=== PATIENT | male | born 1930 | race Caucasian/White ===

== ENCOUNTER 2019-05-24 15:29 | Inpatient (IN) | payer OTHER ==
[~2019-05-24] VITALS: Ht 175.3 cm; Wt 82.4 kg
--- NOTE | ~2019-05-24 | HC ---
[facility] [place] [address] CONSULTATION Name: GILLIAN SPANN Room #: 358-P ADM IN .R.#: [id number] Admission: 05/24/19 Attend Phys: Gerson Shaver MD Discharge: Date of : [birth year] Report #: [id number] THIS REPORT FOR: //name// CC: Gerson Crowley [facility] DATE OF SERVICE: 05/25/2019 HISTORY OF PRESENT ILLNESS: This is an 88-year-old male patient who is not able to provide any reliable history. The son is here and I discussed the patient with the son. I talked to the hospitalist. The patient was admitted with an episode of stroke-like symptoms. However, when the further history is taken, it looks like the patient's symptom is going on for 1-2 years. He had a stroke, which was about 5-7 years ago. It was in [facility]. I do not have any of those records. It affected the right side, but he did make some recovery. About a year ago, he started having some weakness on the right side and speech difficulty. It was gradually progressive, but will intermittently become worse. Yesterday, it became worst and he was brought to the hospital. They were concerned with stroke and they did an MRI of the brain and that does not indicate any acute changes. REVIEW OF SYSTEMS: Positive for hypertension. It is not clear what his blood pressure stays in the facility where he lives. His blood pressure was high when he came in. He was taking aspirin for his prior stroke. I do not know if he was taking statin or not. A 14-point review of system was carried out. This patient is extremely hard of hearing. That makes the evaluation pretty difficult. 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 He moves both sides. It is not possible to do a good sensory system evaluation in this patient because of the patient's difficulty with hearing. No change in cardiac or respiratory status was noticed. PHYSICAL EXAMINATION: VITAL SIGNS: His blood pressure is 146/63, it was higher earlier, respiration is 20, pulse is 84, temperature is 97.9. LABORATORY DATA AND IMAGING STUDIES: His white count is normal. MRI was reviewed and so was carotid Doppler. IMPRESSION: This patient has a prior stroke. He is gradually becoming worst over a period of 1-2 years, looks like he became hypertensive and became even worse than before. I had a long talk with the patient's son and subsequently talked to the hospitalist and in detail. I think his aggravation is because of systemic problems, including hypertension. We cannot fully rule out a stroke. There is a limited thing we can do. We can do PT, OT, speech therapy. We can replace [facility] [address] [place] [address] CONSULTATION Name: ZANAGILLIAN Room #: 358-P [facility] IN M.R.#: [id number] Admission: 05/24/19 Attend Phys: Gerson Shaver MD Discharge: Date of : [birth year] Report #: [id number] aspirin with Plavix. We will see how he does with PT, OT. A total of about 50 minutes was spent on this patient and majority of that was counseling and coordinating. I reviewed extensive records in the computer as well as his imaging studies. By: [id number] [id number] Adan Napier MD /nt
[2019-05-24 15:29] VITALS: BP 184/70
--- NOTE | 2019-05-24 15:29 | NUR ---
CODE STROKE INITIATED
[2019-05-24 16:12] LABS: ABSOLUTE NEUTROPHILS 6.8 thou/uL (1.4-8.2); BASOPHILS 0.2 % (0.0-2.0); EOSINOPHILS 0.2 % (0.0-3.0); HEMATOCRIT 38.2 % (42.0-52.0); HEMOGLOBIN 13.3 gm/dL (14.0-18.0); LYMPHOCYTES 10.6 % (24.0-44.0); MCH 31.8 pg (26.0-34.0); MCHC 34.9 g/dL (28.0-37.0); MONOCYTES 8.9 % (1.0-8.0); PLATELET COUNT 181 thou/uL (150-400); POLYS 80.1 % (36.0-66.0); RDW 12.7 % (10.5-14.5); WBC 8.5 thou/uL (4.0-11.0)
[2019-05-24 16:18] LABS: CALCIUM 9.3 mg/dL (8.5-10.1); CREATININE 1.1 mg/dL (0.7-1.3); POTASSIUM 3.9 mmol/L (3.5-5.1)
[2019-05-24 16:25] LABS: ALBUMIN 3.2 g/dL (3.4-5.0); DIRECT BILIRUBIN 0.2 mg/dL (<0.1-0.3); TOTAL BILIRUBIN 0.8 mg/dL (<0.1-1.0); TOTAL PROTEIN 6.2 g/dL (6.4-8.2)
[2019-05-24] MEDS ORDERED: ASPIR 8181 MG PO (16:55)
[2019-05-24 16:56] LABS: APTT 26.4 Seconds (24.5-32.8); PROTIME 10.4 Seconds (9.3-11.4)
[2019-05-24] MEDS ORDERED: CALCIUM 500 +1 EAC5 PO (16:56)
[2019-05-24] MEDS ORDERED: PROSCAR 5MG TABL5 MG PO (16:56)
[2019-05-24] MEDS ORDERED: ICAPS MV TABLE1 EAC1 PO (16:56)
[2019-05-24] MEDS ORDERED: LISINOPRIL10 MG PO (16:57)
[2019-05-24] MEDS ORDERED: LOPRESSOR25 PO (16:58)
[2019-05-24] MEDS ORDERED: ZOCOR20 MG PO (17:11)
[2019-05-24] MEDS ORDERED: TERAZOSIN HCL10 MG PO (17:12)
[2019-05-24 18:16] VITALS: BP 180/73
[2019-05-24 18:41] LABS: TSH 0.312 uIU/mL (0.358-3.740)
[2019-05-24 18:52] LABS: URINE BILIRUBIN NEGATIVE (Negative); URINE BLOOD NEGATIVE (Negative); URINE CLARITY CLEAR; URINE COLOR YELLOW; URINE GLUCOSE-RANDOM* NEGATIVE (Negative); URINE KETONES NEGATIVE (Negative); URINE LEUKOCYTES-REFLEX NEGATIVE (Negative); URINE NITRITE-REFLEX NEGATIVE (Negative); URINE PROTEIN (DIPSTICK) NEGATIVE (Negative); URINE UROBILINOGEN 0.2 E.U./dl (0.2-1.0)
[2019-05-24 20:30] VITALS: BP 187/87
[2019-05-24 21:19] VITALS: BP 191/82
[2019-05-24 22:12] VITALS: BP 180/78
[2019-05-24 23:00] VITALS: BP 155/69
[2019-05-25 00:09] VITALS: BP 153/80
[2019-05-25 04:45] VITALS: BP 159/84
[2019-05-25 05:43] LABS: HEMOGLOBIN 12.6 gm/dL (14.0-18.0); MCH 30.8 pg (26.0-34.0); MCHC 33.9 g/dL (28.0-37.0); MCV 90.9 fL (80.0-100.0); RBC 4.07 mil/uL (4.50-6.00); RDW 13.1 % (10.5-14.5); WBC 7.5 thou/uL (4.0-11.0)
[2019-05-25 06:06] LABS: ANION GAP 10 mmol/L (7-16); BUN 17 mg/dL (7-18); CALCIUM 8.4 mg/dL (8.5-10.1); CHLORIDE 102 mmol/L (98-107); CHOLESTEROL 119 mg/dL (<200); CO2 23 mmol/L (21-32); CREATININE 0.9 mg/dL (0.7-1.3); GLUCOSE 112 mg/dL (74-106); HDL CHOLESTEROL 48 mg/dL (>40); LDL CHOLESTEROL 63 mg/dL (<100); MAGNESIUM 1.7 mg/dL (1.8-2.4); POTASSIUM 3.6 mmol/L (3.5-5.1); SODIUM 135 mmol/L (136-145); TC:HDL 2.5 Ratio (Not establshd); TRIGLYCERIDE 43 mg/dL (<150); VLDL 9 mg/dL (<40)
[2019-05-25 06:26] LABS: SERUM ASSESSMENT Clear
--- NOTE | 2019-05-25 07:02 | NUR ---
PATIENT ARRIVED FROM ER LAST NIGHT AROUND 2014. PT ORIENTED TO PERSON, SLURRED SPEECH/ EXPRE. APHASIA. PT FOLLOWS SIMPLE COMMANDS AND NODS YES/NO QUESTIONS. PT HAS HX CVA WITH SOME RIGHT SIDE WEAKNESS PER PT'S SON. SPOKE WITH DR JOHNSON R/T MRI RESULTS LAST NIGHT. PT HAD C/O HEADACHE, NOTIFIED TAX ECONOMIST. SEE EMAR.
[2019-05-25 08:04] VITALS: BP 188/79
--- NOTE | 2019-05-25 08:11 | EKG ---
[address] [place] [address] ELECTROCARDIOGRAM REPORT Name: GILLIAN SPANN Room #: 358-P ADM IN M.R.#: [id number] Admission: 05/24/19 Attend Phys: Gerson Shaver MD Discharge: Date of : [birth year] Report #: [id number] THIS REPORT FOR: //name// [facility] ED Test Date: 2019-05-24 Test Time: 15:45:56 Pat Name: GILLIAN SPANN Department: Room: 358 Gender: M Machine Load Clerk: NICHOLAS : 1930 Requested By: Melissa Gallardo Order Number: [id number] MD: Jorge Bowen Measurements Intervals [place] Rate: 82 P: -9 CT: 193 QRS: 20 QRSD: 96 T: 55 QT: 363 QTc: 424 Interpretive Statements Sinus rhythm Borderline T wave abnormalities No previous ECG available for comparison Electronically Signed On 05-25-2019 8:11:26 CDT by Jorge Bowen [email or web address] <ELECTRONICALLY SIGNED> By: Jorge Bowen MD, [facility] 05/25/19 0811 1545 1545 Jorge Bowen MD, FACC /EPI
[2019-05-25 10:30] VITALS: BP 147/71
[2019-05-25 12:51] VITALS: BP 146/63
--- NOTE | 2019-05-25 13:49 | 2DMMODE ---
[facility] [place] [address] 2 D/M-MODE ECHOCARDIOGRAM Name: GILLIAN SPANN Room #: 358-P [facility] IN ..#: [id number] Admission: 05/24/19 Attend Phys: Gerson Shaver, Discharge: Date of : [birth year] Date of Service: 05/25/19 1349 Report #: [id number] THIS REPORT FOR: //name// APPROVED REPORT Study performed: 05/25/2019 12:32:27 EXAM: Comprehensive 2D, Doppler, and color-flow Echocardiogram Patient Location: Bedside Room #: [facility] Status: routine BSA: 1.98 HR: 77 bpm BP: 188/79 mmHg Rhythm: NSR Other Information Study Quality: Adequate Indications CVA/TIA Hypertension/HDD Echo Enhancing Agent Indication: Rule out Shunt Agent(s) / Amount(s) Used: Agitated Saline 7 cc 2D Dimensions IVSd: 12.16 (7-11mm) LVOT Diam: 20.26 (18-24mm) LVDd: 41.69 mm PWd: 11.99 (7-11mm) Ascending Ao: 36.67 (22-36mm) LVDs: 28.32 (25-40mm) Aortic Root: 32.61 mm IVC: 23.00 mm Aortic Valve AoV Peak Rony.: 1.50 m/s AO Peak Gr.: 9.01 mmHg LVOT Max P.52 mmHg LVOT Max V: 1.06 m/s [place] Vmax: 2.28 cm2 Mitral Valve E/A Ratio: 0.9 MV Decel. Time: 237.25 ms MV E Max Rony.: 0.77 m/s MV A Rony.: 0.82 m/s [facility] [address] [place] [address] 2 D/M-MODE ECHOCARDIOGRAM Name: ZANAGILLIAN Room #: 358-P [facility] IN ..#: [id number] Admission: 05/24/19 Attend Phys: Gerson Shaver, Discharge: Date of : [birth year] Date of Service: 05/25/19 1349 Report #: [id number] PHT: 68.80 ms IVRT: 133.79 ms Pulmonary Valve PV Peak Rony.: 1.04 m/s PV Peak Gr.: 4.33 mmHg Pulmonary Vein P Vein S: 0.75 m/s P Vein A: 0.28 m/s P Vein D: 0.45 m/s P Vein A Dur.: 115.3 msec P Vein S/D Ratio: 1.67 Tricuspid Valve TR Peak Rony.: 2.39 m/s TR Peak Gr.: 22.77 mmHg PA Pressure: 33.00 mmHg Left Ventricle The left ventricle is normal size. There is normal LV segmental wall motion. Mild concentric left ventricular hypertrophy. The left ventricular systolic function is normal. The left ventricular ejection fraction is within the normal range. LVEF is 60-65%. Grade I - abnormal relaxation pattern. Right Ventricle The right ventricle is normal size. The right ventricular systolic function is normal. Atria Left atrium is at the upper limits of normal. Interatrial septum is intact without evidence of ASD or PFO. Right atrium is at the upper limits of normal. Aortic Valve The aortic valve is normal in structure. Aortic valve is calcified. Mild aortic regurgitation. There is no aortic valvular stenosis. Mitral Valve The mitral valve is normal in structure. Mild mitral regurgitation. No evidence of mitral valve stenosis. Tricuspid Valve The tricuspid valve is normal in structure. There is trace to mild tricuspid regurgitation. Estimated PAP 33 mmHg. There is mild pulmonary hypertension. [address] [address] 2 D/M-MODE ECHOCARDIOGRAM Name: ZANAGILLIAN Room #: 358-P [facility] IN ..#: [id number] Admission: 05/24/19 Attend Phys: Gerson Shaver, Discharge: Date of : [birth year] Date of Service: 05/25/19 1349 Report #: [id number] Pulmonic Valve The pulmonary valve is normal in structure. There is no pulmonic valvular regurgitation. Great Vessels The aortic root is normal in size. IVC is dilated and collapses <50% with inspiration. <Conclusion> The left ventricle is normal size. Mild concentric left ventricular hypertrophy. The left ventricular systolic function is normal. Grade I - abnormal relaxation pattern. The right ventricle is normal size. Left atrium is at the upper limits of normal. Aortic valve is calcified. Mild aortic regurgitation. Mild mitral regurgitation. There is trace to mild tricuspid regurgitation. Estimated PAP 33 mmHg. <ELECTRONICALLY SIGNED> By: Omid Kemp MD 05/25/19 1349 1349 1349 Omid Kemp MD /INF
--- NOTE | 2019-05-25 14:00 | NUR ---
ASSESSMENT: CM REVIEWED CHART AND MET WITH PATIENT AND HIS SON AT THE BEDSIDE. PT IS FROM [facility]. PT NORMALLY AMBULATES USING A WALKER. CM DISCUSSED ROLE. PT/OT SEEING PATIENT. CM WAITING FOR PHYSICIAL THERAPY DOCUMENTATION BUT SON REPORTS THEY WERE IN EARLIER AND RECOMMENDING SNF. SON REPORTS PATIENT HAD BEEN TO [facility] THE PAST AND ACUTE REHAB AT [place]. SON STATES HE WOULD LIKE TO LOOK AT A LIST OF SNF FACILITIES. CM PROVIDED PATIENTS SON WITH SNF LIST TO REVIEW. CM WILL CONTINUE TO FOLLOW TO ASSIST NEEDED.
--- NOTE | 2019-05-25 16:10 | NUR ---
dp sent referral to [facility], asked them to review and seek authorization if appropriate. Patient will be ready for dc tomorrow. DP will call and make sure they receive.
--- NOTE | 2019-05-25 18:42 | NUR ---
Pt adimited at 05/24/19 for confusion and aphasia, pt is A&O X3 , and pt is not confusion, but pt still has aphasia , pt can understand , follow commands, but he has difficult time to verbal express, pt's vs are stable, pt's head CT and MRI both show no new CVA at this time. pt's family stay at pt's bedside, pt denies pain and n/v at this time.RN will report to next shift to keep eye on pt.
[2019-05-25 20:45] VITALS: BP 135/64
[2019-05-26 00:07] LABS: GLYCOHEMOGLOBIN (HGB A1C) 5.4 % (4.8-5.6)
--- NOTE | 2019-05-26 03:28 | NUR ---
Patient making progress towards outcome goals, Vital signs and rhythm stable. Neuro unchanged. High fall risks, fall precautions in place. Placement per social work supervisor.
[2019-05-26 04:45] VITALS: BP 143/68
[2019-05-26 07:22] VITALS: BP 163/67
[2019-05-26] MEDS ORDERED: CLOPIDOGREL75 MG PO (09:56)
--- NOTE | 2019-05-26 10:24 | NUR ---
DEREK REVIEWED CHART AND SPOKE WITH PT AND SON. DEREK CONTACTED THE [facility] [phone] [id number] TRANSITION TEAM AND THEY TRANSFERED CM TO [id number]. DEREK EXPLAINED PATIENT IS NEEDING TRANSITION TO SNF AT DISCHARGE AND WONDERING IF [facility] WILL [facility] THIS OR IF PATIENT HAS TO USE OTHER INSURANCE. SHE STATED PATIENT HAS THE OPTION OF SPEAKING WITH MONALISA COTTON [id number] IN ATTEMPTS TO GO TO A ID CONTRACTED FACILITY IF THEIR ARE OPENINGS (WHICH THE [facility] WOULD COVER) OR PATIENT CAN CHOOSE TO USE THEIR [employer] INSURANCE IN ATTEMPTS TO GET AUTH FROM THEM. DEREK SPOKE WITH PATIENTS SON WHO STATES THEY CHOOSE TO USE THEIR [employer] INSURANCE DUE TO WANTING TO GO TO [facility] WHO IS NOT CONTRACTED WITH THE ID. DEREK NOTIFIED MARCELLA IN ADMISSIONS AT [facility] WHO STATED SHE DID NOT RECEIVE REFERRAL SENT. REFERRAL WAS REFAXED AND DEREK NOTIFIED HER THAT PT WANTS TO USE [employer] INSURANCE AND TO SEEK AUTH THROUGH [employer]. [employer] INSURANCE IS NOT YET UPDATED ON FACESHEET TO DEREK LEFT FOR PRE-CERT [id number] AND FAXED AGAIN A COPY OF THE CARD. DEREK FAXED COPY OF [employer] CARD TO MARCELLA IN ADMISSIONS AT [facility]. WAITING TO HEAR BACK AT THIS TIME.
--- NOTE | 2019-05-26 10:44 | NUR ---
Krista called today to say she didn't get referral, dp refaxed and also sent pt eval and pt notes. They need ot which isn't in. DP will make sure it is ordered today.
[2019-05-26 11:49] VITALS: BP 122/55
[2019-05-26 15:20] VITALS: BP 154/66
--- NOTE | 2019-05-26 18:39 | NUR ---
pt is A&O X3, PT's vs are stable, pt gets up to chair with assist, pt's aphasia has some improved, when pt has set up NH /rehab facility , pt will dischage , pt's family has updated pt's information.pt has meeting most of care plan goals.
[2019-05-26 19:27] VITALS: BP 142/64
[2019-05-27 04:14] VITALS: BP 150/80
--- NOTE | 2019-05-27 06:12 | NUR ---
PT PROGRESSING TO DC GOALS TO [facility] TODAY. PT IS SPEAKING MORE CLEARLY, BUT STILL SOME APHASIA. PT STANDBY ASSIST WITH WALKER TO BATHROOM. VSS AND PT HAS NO OTHER COMPLAINTS EXCEPT THAT HE WAS HUNGRY. GAVE SANDWICH TRAY WHICH PT ATE AND TOLERATED WELL WITHOUT ANY ASPIRATION ISSUES. HOURLY ROUNDING.
[2019-05-27 08:06] VITALS: BP 148/67
--- NOTE | 2019-05-27 08:41 | NUR ---
I have reviewed the documentation by CATERINA MEEKS from 05/26/19 to 05/27/19 and I concur with it. Juan Carlos SLADE
--- NOTE | 2019-05-27 10:31 | NUR ---
ON-GOING ASSESSMENT: CM REVIEWED CHART AND SPOKE WITH AXEL IN ADMISSION AT [facility] WHO STATES THEY RECEIVED INSURANCE AUTH TO ACCEPT PATIENT TO SNF TODAY. CM NOTIFIED BEDSIDE RN WELL PATIENTS SON CHENTE. TRANSPORTATION HAS BEEN ARRANGED FOR 1PM. SON AND BEDSIDE RN NOTIFIED. CHART COPY WAS ORDERED AND CM NOTIFIED CORD MAKER. CM FAXED D/C PAPERWORK TO [facility] AND CONFIRMED RECEIPT. PT REPORTS NO FURTHER QUESTIONS FROM CM AT THIS TIME.
--- NOTE | 2019-05-27 10:41 | NUR ---
PT'S assessment has done, Pt is A&OX3, pt has hard of hearing , pt's aphasia has improved, pt understand well , pt's vs are stable, pt denies pain and sob at this time, pt gets up to chair with assist. pt will discharge to NH /rehab facility [facility] at 1pm. pt and pt's son have notified pt d/c at 1pm.
[2019-05-27 11:09] VITALS: BP 139/53
--- NOTE | 2019-05-27 13:21 | NUR ---
RN has giving report to NH nurse, pt's L AC PIV has removed, pt's family is at pt's bedside, pt was discharged to [place] by W/C AT 1320PM.
--- NOTE | 2019-05-28 08:41 | NUR ---
I have reviewed the documentation by CATERINA MEEKS from 06/27/19 to 05/28/19 and I concur with it. Juan Carlos SLADE
== END 2019-05-27 13:20 | DRG 78 ==
LOC: ER 15:29 → EROBS 18:21 → 3W 18:21
PROVIDERS: Emergency Medicine; ADMIT Internal Medicine
DX: I67.4 Hypertensive encephalopathy (principal); G45.9 Transient cerebral ischemic attack, unspecified; R47.01 Aphasia; I69.351 Hemiplegia and hemiparesis following cerebral infarction affecting right dominant side; I10 Essential (primary) hypertension; E78.5 Hyperlipidemia, unspecified; N40.0 Benign prostatic hyperplasia without lower urinary tract symptoms; E83.42 Hypomagnesemia; E05.90 Thyrotoxicosis, unspecified without thyrotoxic crisis or storm; I65.01 Occlusion and stenosis of right vertebral artery; Z88.6 Allergy status to analgesic agent; Z79.82 Long term (current) use of aspirin; Z79.899 Other long term (current) drug therapy; Z87.891 Personal history of nicotine dependence
CPT/HCPCS: 10879